=== PATIENT | female | born 1995 | race Caucasian/White ===

== ENCOUNTER 2019-09-09 14:59 | Emergency (ER) | payer OTHER, SELFPAY ==
[2019-09-09 15:04] VITALS: BP 142/89; PULSE 84; RESP 16; TEMP 36.6; O2SAT 100
--- NOTE | 2019-09-09 15:22 | ED.WOUNDLAC ---
HPI - Wound/Laceration General Chief Complaint: Wound/Laceration Stated Complaint: C SECTION INCISION REDNESS Time Seen by Provider: 09/09/19 15:09 Source: patient Mode of arrival: ambulatory Limitations: no limitations History of Present Illness HPI narrative: This is a 23 year old female that presents to the ER for incision site redness after recent c section. Reports section on the of last month. Reports she was seen at her follow-up visit with Dr. Chey Abebe 6 days ago. Reports she has a small area of wound dehiscence. Reports since her appointment with him the area has become larger and now has some redness around it. Reports her incision site is painful. Also reports some pain with urination. Denies fevers, abdominal pain, nausea, vomiting, or hematuria. Related Data Home Medications Medication Instructions Recorded Confirmed -brzq fum,xs-[id number]-rbw 1 cap PO DAILY 06/10/19 08/27/19 ergocalciferol (vitamin D2) 50,000 unit PO WEEKLY 08/02/19 08/21/19 [Vitamin D2] ferrous sulfate 325 mg PO DAILY 08/07/19 08/27/19 medroxyprogesterone mg 09/09/19 09/09/19 Allergies Allergy/AdvReac Type Severity Reaction Status Date / Time Iodinated Contrast Media Allergy Severe Anaphylactic Verified 09/09/19 15:12 Shock Review of Systems Review of Systems: Narrative: CONSTITUTIONAL: Denies fever GASTROINTESTINAL: Denies abdominal pain, nausea, vomiting GENITOURINARY: Denies dysuria. Denies hematuria. SKIN: Reports redness and drainage from wound All systems reviewed & are unremarkable except as noted in HPI and below PMFSH Past Medical History Medical History (Updated 09/09/19 @ 17:38 by Jazzmine Luna PA-C) Anemia Morbid obesity PCOS (polycystic ovarian syndrome) Social History Social History Smoking status: Never smoker Second hand tobacco smoke exposure: Yes Alcohol intake: current Substance use: never Gender identity (if verbalized by the patient): Female Spiritual care concerns: No Exam Narrative: Exam Narrative: GENERAL: Well-appearing, well-nourished, and in no acute distress. HEAD: Normocephalic, atraumatic. EYES: EOMI. CHEST: Clear to auscultation. No respiratory distress. No wheezes rales or rhonchi HEART: Regular rate and rhythm. No murmur heard. Normal peripheral pulses. ABDOMEN: Soft, nontender, nondistended, normal active bowel sounds. section incision with 2 cm area of wound dehiscence. Mild surrounding redness, no erythema or warmth. No abnormal drainage EXTREMITIES: Normal range of motion. No edema. SKIN: Warm, dry, no rash. NEURO: No focal deficits. Alert and oriented x3. PSYCH: Normal mood and affect Course Consultations Consultation #1: Spoke with Dr. [place] cushion worker for Dr. Chey Abebe. He agrees with plan and would like her to follow-up in clinic this week. Date: 09/09/19 Time: 17:37 Vital Signs Vital signs: Vital Signs Temperature 97.9 F 09/09/19 15:04 Pulse Rate 16 L 09/09/19 15:04 Respiratory Rate 16 09/09/19 15:04 Blood Pressure 142/89 H 09/09/19 15:04 Pulse Oximetry 100 09/09/19 15:04 Temperature 97.9 F 09/09/19 15:04 Pulse Rate 57 L 09/09/19 17:19 Respiratory Rate 16 09/09/19 17:19 Blood Pressure 119/82 09/09/19 17:19 Pulse Oximetry 98 09/09/19 17:19 MDM - Wound/Laceration MDM Narrative Medical decision making narrative: Patient presents to the ER for section incision dehiscence. Patient with a 2 cm area of dehiscence the left side of her section incision. No erythema or warmth around the area. No abnormal drainage. Patient is afebrile. No leukocytosis on CBC. No acute elevation of inflammatory markers. Patient also reported some dysuria. UA with white blood cells, leuk esterase and bacteria. Patient will be started on Keflex which will treat for urinary tract infection and cover her wound as well. No overt signs
[2019-09-09 16:06] LABS: Basophils Percent Auto 0.5 % (0.2-1.2); Eosinophils Absolute Auto 0.2 K/mm3 (0-0.3); Eosinophils Percent Auto 2.9 % (0-4.4); Hematocrit 39.5 % (37.0-47.0); Hemoglobin 12.5 g/dL (12.0-15.0); Immature Granulocyte Absolute 0.03 K/mm3 (0.00-0.031); Immature Granulocyte Percent A 0.5 % (0-0.5); Lymphocytes Absolute Auto 1.91 K/mm3 (0.9-3.2); Lymphocytes Percent Auto 28.8 % (18.3-44.2); Mean Corpuscular HGB Conc 31.6 g/dl (32-36); Mean Corpuscular Hemoglobin 27.5 pg (26-34); Mean Corpuscular Volume 86.8 fl (80-100); Mean Platelet Volume 9.4 fl (7.4-10.4); Monocytes Absolute Auto 0.3 K/mm3 (0.1-0.6); Monocytes Percent Auto 4.5 % (2.6-8.5); Neutrophils Absolute Auto 4.2 K/mm3 (1.3-6.7); Neutrophils Percent Auto 62.8 % (45.5-73.1); Platelet Count Result 282 k/mm3 (150-375); Red Blood Count 4.55 M/mm3 (4.2-5.4); White Blood Count 6.6 K/mm3 (4.5-10.0)
[2019-09-09 16:19] LABS: CRP 0.7 mg/dL (<1.0)
[2019-09-09 16:22] LABS: Add Urine Microscopic? YES; Appearance Urine Cloudy (Clear); Bacteria Urine Trace /hpf; Bilirubin Urine Negative (Negative); Blood Urine 3+ (Negative); Color Urine Yellow (Yellow); Glucose Urine UA Negative (Negative); Ketones Urine Negative (Negative); Leukocyte Esterase Ur 3+ LEU/UL (Negative); Nitrate Urine Negative (Negative); Protein Urine Negative (Negative); Specific Grav Ur 1.009 (1.001-1.035); Squamous Epithelial Cell Urine Occasional /hpf (Few); Urobilinogen Urine Negative mg/dL (<2.0); WBC Urine >75 /hpf
[2019-09-09 16:37] LABS: Erythrocyte Sedimentation Rate 44 mm/hr (0-20)
[2019-09-09 17:19] VITALS: BP 119/82; PULSE 57; RESP 16; O2SAT 98
[2019-09-09] MEDS: CEPHALEXIN 500 MG CAPSULE PO (17:32)
== END 2019-09-09 17:59 | disposition home or self-care (01) ==
PROVIDERS: Physician Assistant; Emergency Provider Emergency Medicine; PCP Physician Assistant
DX: O90.0 Disruption of cesarean delivery wound (principal); O86.22 Infection of bladder following delivery; O99.03 Anemia complicating the puerperium; D64.9 Anemia, unspecified; O99.215 Obesity complicating the puerperium; E66.01 Morbid (severe) obesity due to excess calories; O99.285 Endocrine, nutritional and metabolic diseases complicating the puerperium; E28.2 Polycystic ovarian syndrome
CPT/HCPCS: 36415; 81001; 85025; 85652; 86140; 87086; 87088; 99283; A9270

== ENCOUNTER 2020-08-19 03:13 | Outpatient (CLI) | payer OTHER, SELFPAY ==
[2020-08-19 19:22] LABS: SARS-CoV-2 RNA PCR Negative
== END 2020-08-19 03:14 | disposition home or self-care (01) ==
LOC: ANHCOVIDDT 03:13
PROVIDERS: Visit Provider Obstetrics & Gynecology
DX: Z01.812 Encounter for preprocedural laboratory examination (principal); Z20.822 Contact with and (suspected) exposure to COVID-19
CPT/HCPCS: 36415; 86850; 86900; 86901; C9803; U0003; U0005

== ENCOUNTER 2020-08-19 08:46 | Outpatient (CLI) | payer OTHER, SELFPAY | END 2020-08-19 08:47 | disposition home or self-care (01) | PROVIDERS: Visit Provider Obstetrics & Gynecology | DX: Z01.812 Encounter for preprocedural laboratory examination (principal) | CPT/HCPCS: 36415; 86850; 86900; 86901 ==

== ENCOUNTER 2020-08-22 02:09 | Day surgery (SDC) | payer OTHER, SELFPAY ==
[2020-08-15 14:48] VITALS: BMI 42.1
--- NOTE | 2020-08-20 08:53 | PM.IMHP ---
H&P: HPI History of Present Illness Date/Time: 08/20/20 08:53 Chief Complaint: pain/bleeding Narrative: Addis House is a 24 year old female is admitted for diagnostic laparoscopy hysteroscopy dilatation curettage. She has had pain discomfort and irregular bleeding. Ultrasound was unhelpful. Risks and benefits of this procedure reviewed very detailed eye. She asked to proceed Review of Systems Review of Systems: All systems reviewed & are unremarkable except as noted in HPI and below PMFSH Past Medical History Medical History (Updated 09/10/19 @ 00:00 by Luciano Hill) Anemia Morbid obesity PCOS (polycystic ovarian syndrome) Family History Family History Grandparent Family history of malignant neoplasm Other Breast cancer Mother Liver disease Social History Social History Smoking status: Never smoker Second hand tobacco smoke exposure: Yes Alcohol intake: current Substance use: never Gender identity (if verbalized by the patient): Female Spiritual care concerns: No Meds Home Medications and Allergies Home Medications Medication Instructions Recorded Confirmed Type No Home Medications 08/15/20 08/15/20 History Allergies Allergy/AdvReac Type Severity Reaction Status Date / Time Iodinated Contrast Media Allergy Severe Anaphylactic Verified 08/15/20 14:47 Shock Exam Const: General: no acute distress Eyes: General: appearance normal, both eyes and all related structures Neck: Neck: supple and no JVD Thyroid: thyroid normal Resp: Effort & Inspection: normal respiratory effort Auscultation: clear to auscultation bilaterally Cardio: Rate: regular rate Rhythm: regular rhythm GI: Inspection: non-distended GI Palp: Yes Soft to palpation, No Tenderness to palpation present (GI) and No Guarding due to palpation present (GI) Auscultation: normal bowel sounds : General: Yes bladder normal to inspection External Female Exam: normal external appearance Speculum Exam - Vagina: normal appearance of the vagina Speculum Exam - Cervix: normal appearance of the cervix Bimanual exam- vagina & uterus: Cervical tenderness present and Uterine tenderness Bimanual Exam- Adnexa, other: no masses and tender Skin: General skin exam: no rashes or lesions noted Extrem: General: normal to inspection and no edema Psych: Mental Status: mental status grossly normal Affect: normal affect Assessment and Plan Additional Plan impression: Pelvic pain and bleeding refractory to medical therapy Plan: laparoscopy/ hysteroscopy dilatation curettage
[2020-08-22] VITALS (10 sets, daily range): BP systolic 96–140; BP diastolic 43–95; PULSE 54–102; RESP 12–20; TEMP 36.3–36.8; O2SAT 94–100
--- NOTE | 2020-08-22 06:45 | WPDHPUPDATE1 ---
History and Physical Update Update Date/Time: 08/22/20 06:45 History and Physical has been reviewed, including an updated exam of the patient. There are NO changes in the patient's condition. Risks, benefits, and alternatives have been discussed and questions answered. Patient agrees to proceed with procedure.
[2020-08-22] MEDS: LACTATED RINGERS 1,000 ML 30 ML IV CONT ×2 (10:50→12:53)
[2020-08-22] MEDS: ACETAMINOPHEN 500 MG TABLET 1000 MG PO (10:56)
[2020-08-22] MEDS: KETOROLAC 15 MG/ML VIAL (*BKC) IV PUSH (11:00)
--- NOTE | 2020-08-22 11:20 | WPDANESEPPF ---
Anes - Initial Pre Proc Eval Procedure: Operation Date: 08/22/20 12:30 Proposed Procedures p Diagnostic Laparoscopy, Hysteroscopy Dilation And Curettage - Talon Maharaj MD Date/Time: 08/22/20 11:20 Surgeon: Talon Maharaj MD Pre Op Diagnosis: Pelvic Pain, Irregular Bleeding, Dysmenorrhea Patient Data Age: 24 Gender: F Height: 5 ft 4 in Weight: 111.4 kg Allergies Allergy/AdvReac Type Severity Reaction Status Date / Time Iodinated Contrast Media Allergy Severe Anaphylactic Verified 08/15/20 14:47 Shock Home Medications Medication Instructions Recorded Confirmed Type hydrocodone-acetaminophen [[place]] 1 tablet PO Q4H PRN #30 tablet 08/22/20 Rx Patient hx anesthesia problems: none Family hx anesthesia problems: none PMFSH Past Medical History Medical History Anemia Morbid obesity PCOS (polycystic ovarian syndrome) Surgical History Surgical History (Updated 08/22/20 @ 11:24 by Talon Saldaña MD) H/O abdominoplasty History of section History of partial gastrectomy Family History Family History Grandparent Family history of malignant neoplasm Other Breast cancer Mother Liver disease Social History Social History Smoking status: Never smoker Second hand tobacco smoke exposure: Yes Alcohol intake: current Substance use: never Living arrangements: with family Gender identity (if verbalized by the patient): Female Spiritual care concerns: No Anes - Eval Final PreProcedure Day of Procedure 08/22/20 11:20 Patient weight: morbidly obese Heart: regular rate and rhythm Lungs: clear to auscultation Airway: Mallampati scale class II Neurological: alert and oriented Last oral intake: >/= 8 hours ASA classification: III Emergent: no Anesthetic plan: proceed Anesthesia type and monitoring: general ETT and standard monitoring Informed Consent: The patient's anesthetic plan and its attendant risks and benefits were discussed with the patient/family/POA. Questions were solicited and answers provided to the satisfaction of the patient/family/POA.
--- NOTE | 2020-08-22 12:47 | P.OP_ITS ---
Procedure Note - Detailed Date of procedure: 08/22/20 Pre-op diagnosis: Pelvic Pain, Irregular Bleeding, Dysmenorrhea Surgeon: Talon Maharaj MD Postop diagnosis: Pelvic pain/irregular bleeding/dysmenorrhea/bilateral ovarian cysts Procedure: Laparoscopy/destruction of bilateral ovarian cysts/hysteroscopy/d ilatation curettage EBL: 5cc Anesthesia: General endotracheal Complications: None Findings: Bilateral ovarian cysts Description of procedure: The patient was prepped and draped in the normal sterile fashion and placed in the dorsal lithotomy position. Under excellent general endotracheal anesthesia weighted speculum placed in posterior fornix of vagina. The anterior lip of the cervix grasped with a single-tooth tenaculum in the Byers's cannula inserted to the cervix. The tumor attached together in to be used for uterine manipulation. The bladder emptied of clear urine. The weighted speculum was removed. Gloves were changed. Mid abdominal incision was made in the 5mm trocar advanced in the abdomen after CO2 gas had been filled. The patient placed in Trendelenburg and a suprapubic incision made. The 5mm trocar advanced under direct visualization assuring no injury. Uterus ovaries and tubes were visualized and photo documentation undertaken. Multiple ovarian cysts were seen and these were opened in linear fashion. Irrigation was undertaken to clear. No other abnormalities were seen. The gas removed from the abdomen. The trocars removed from the abdomen. The i ncisions closed with 4 Monocryl and glue. Attention was turned to the hysteroscopic portion of procedure. The uterus was sounded to 8cm. Serial dilatation with fragmented dilators performed followed by passage of the 5mm visualizing hysteroscope using normal saline as visualizing medium. Thick irregular endometrial tissue was seen but no evidence of polyps or other abnormalities. The uterus was scraped over the entire 360? until good grating sound was heard. When no further tissue could be removed instruments removed. All sponge, needle, instrument counts were correct. There were no immediate complications
[2020-08-22] MEDS: fentaNYL CITRATE INJ (*CRX) 100 MCG/2 ML VIAL 25 MCG IV PUSH ×4 (13:33→13:45)
[2020-08-22] MEDS: oxyCODONE HCL (*CRX) 5 MG TAB IR PO (14:37)
[2020-08-22] MEDS: ONDANSETRON INJ 4 MG/2 ML VIAL IV PUSH (15:12)
== END 2020-08-22 16:00 | disposition home or self-care (01) ==
PROVIDERS: Visit Provider Obstetrics & Gynecology
PROC: 0UDB8ZZ Extraction of Endometrium, Via Natural or Artificial Opening Endoscopic (ICD-10-PCS; CPT 58558; principal; 2020-08-22 12:30)
DX: N93.9 Abnormal uterine and vaginal bleeding, unspecified (principal); D64.9 Anemia, unspecified; E28.2 Polycystic ovarian syndrome; E66.9 Obesity, unspecified; Z68.41 Body mass index [BMI] 40.0-44.9, adult
CPT/HCPCS: 58662; 58558; 88305; A9270; J0330; J1170; J1885; J2250; J2405; J2704; J3010; J7030; J7120

== ENCOUNTER 2022-08-05 15:56 | Outpatient (CLI) | payer OTHER, SELFPAY ==
--- NOTE | ~2022-08-05 | MR_ITS ---
EXAMINATION: MR cervical spine wo con DATE: 08/05/2022 16:44 INDICATION: Cervical radiculopathy. Acute neck pain. TECHNIQUE: Magnetic resonance imaging (MRI) of the cervical spine was performed without intravenous c ontrast. COMPARISON: Cervical spine MRI 11/05/2016 FINDINGS: There is mild kyphosis of cervical spine. Vertebral body heights and intervertebral disc he ights are normal. The spinal cord signal intensity is normal. The following disc levels are specifica lly discussed: C2-C3: The disc does not extend beyond the endplate margin. There is no uncovertebral joint osteoarth ritis. There is mild bilateral facet joint osteoarthritis. There is no neural foraminal stenosis. The re is no central canal stenosis. C3-C4: The disc does not extend beyond the endplate margin. There is no uncovertebral joint osteoarth ritis. There is mild bilateral facet joint osteoarthritis. There is no neural foraminal stenosis. The re is no central canal stenosis. C4-C5: The disc does not extend beyond the endplate margin. There is no uncovertebral joint osteoarth ritis. There is no facet joint osteoarthritis. There is no neural foraminal stenosis. There is no darrell tral canal stenosis. C5-C6: The disc does not extend beyond the endplate margin. There is no uncovertebral joint osteoarth ritis. There is no facet joint osteoarthritis. There is no neural foraminal stenosis. There is no darrell tral canal stenosis. C6-C7: The disc does not extend beyond the endplate margin. There is no uncovertebral joint osteoarth ritis. There is mild bilateral facet joint osteoarthritis. There is no neural foraminal stenosis. The re is no central canal stenosis. C7-T1: The disc does not extend beyond the endplate margin. There is no uncovertebral joint osteoarth ritis. There is no facet joint osteoarthritis. There is no neural foraminal stenosis. There is no darrell tral canal stenosis. IMPRESSION: 1. Multilevel mild facet joint osteoarthritis. Reviewed, dictated and finalized at location A. SPORTATION MANAGER
== END 2022-08-05 15:57 | disposition home or self-care (01) ==
PROVIDERS: PCP Physician Assistant; Visit Provider Physician Assistant
DX: M54.12 Radiculopathy, cervical region (principal); M54.2 Cervicalgia; M85.88 Other specified disorders of bone density and structure, other site
CPT/HCPCS: 72141